=== PATIENT | female | born 1970 | race Caucasian/White ===

== ENCOUNTER → 2017-08-29 | Outpatient (CLI) | payer OTHER | LOC: BRMIMAGING 12:47 | PROVIDERS: ATTEND Family Medicine | DX: Z12.31 Encounter for screening mammogram for malignant neoplasm of breast (principal); Z80.3 Family history of malignant neoplasm of breast ==

== ENCOUNTER → 2018-12-11 | Outpatient (CLI) | payer OTHER | LOC: BRMIMAGING 11:17 | PROVIDERS: ATTEND Physician Assistant Medical | DX: Z12.31 Encounter for screening mammogram for malignant neoplasm of breast (principal); Z80.3 Family history of malignant neoplasm of breast ==